=== PATIENT | female | born 2000 | race African-American/Black ===

== ENCOUNTER 2021-04-21 09:34 | Emergency (ER) | payer MEDICAID, OTHER ==
[~2021-04-21] VITALS: Ht 167.6 cm; Wt 105.0 kg
[2021-04-21 10:35] LABS: CLARITY URINE CLOUDY (CLEAR); COLOR URINE YELLOW (YELLOW); KETONES URINE NEGATIVE (NEGATIVE); LEUKOCYTE ESTERASE URINE 2+ (NEGATIVE); NITRITE URINE NEGATIVE (NEGATIVE); OCCULT BLOOD URINE 3+ (NEGATIVE); PH URINE 6.5 (4.5-8.0); PROTEIN URINE TRACE (NEGATIVE); UROBILINOGEN URINE 0.2 E.U./dL (0.2-1.0)
[2021-04-21] MEDS ORDERED: ONDANSETRON HCL 4MG/2ML INJ IV STA (10:42)
[2021-04-21] MEDS ORDERED: MORPHINE SULFATE 4 MG/ML CPJ (NOT FOR IM USE) IV STA (10:42)
[2021-04-21] MEDS ORDERED: SODIUM CHLORIDE 0.9% 1,000 ML IV ONE (10:45)
[2021-04-21 11:24] LABS: BASOPHILS % 0.5 % (0.0-2.0); EOSINOPHILS % 1.2 % (0.0-5.0); HEMATOCRIT. 42.3 % (36.0-48.0); HEMOGLOBIN. 13.7 g/dL (12.0-16.0); LYMPHOCYTES % 11.5 % (20.0-50.0); MEAN CORPUSCULAR HEMOGLOBIN 23.7 pg (28.0-32.0); MEAN CORPUSCULAR VOLUME 73.2 fL (81.0-99.0); MONOCYTES % 6.6 % (2.0-8.0); NEUTROPHILS % 80.2 % (40.0-76.0); PLATELET 258 x1000/uL (130-400); RED BLOOD CELL COUNT 5.77 mill/uL (4.2-5.4); RED CELL DISTRIBUTION WIDTH 18.6 % (11.6-14.6)
[2021-04-21 11:27] LABS: HCG SCREEN NEGATIVE
[2021-04-21 11:29] LABS: CHLORIDE 110 mEq/L (98-107)
[2021-04-21] MEDS ORDERED: MAGNESIUM/ALUMINUM HYDROXIDE/SIMETHICONE 30ML UDC PO ONE (11:30)
[2021-04-21] MEDS ORDERED: NITR-87 MT (11:56)
[2021-04-21] MEDS ORDERED: ACETAMINOPHEN 325MG TABLET PO ONE (12:45)
[2021-04-21 12:55] VITALS: BP 132/70
== END 2021-04-21 12:57 | disposition home or self-care (01) ==
LOC: ER 09:34
DX: K29.70 Gastritis, unspecified, without bleeding (principal)
CPT/HCPCS: 36415; 76705; 80053; 81003; 83690; 84703; 85025; 87086; 93005; 96361; 96374; 96375; 99285; J2270; J2405; J7030

== ENCOUNTER 2021-05-02 06:43 | Emergency (ER) | payer MEDICAID, OTHER ==
[~2021-05-02] VITALS: Ht 170.2 cm; Wt 91.0 kg
[~2021-05-02 06:43] MED LIST: NITR-87 MT
[2021-05-02] MEDS ORDERED: ONDANSETRON HCL 4MG/2ML INJ IV STA (07:13)
[2021-05-02] MEDS ORDERED: KETOROLAC 30MG/ML VIAL IV STA (07:13)
[2021-05-02] MEDS ORDERED: SODIUM CHLORIDE 0.9% 1,000 ML IV ONE (07:15)
[2021-05-02 08:12] LABS: CHLORIDE 108 mEq/L (98-107)
[2021-05-02 08:14] LABS: HCG SCREEN NEGATIVE
[2021-05-02 08:17] LABS: HEMATOCRIT. 43.4 % (36.0-48.0); HEMOGLOBIN. 14.3 g/dL (12.0-16.0); MEAN CORPUSCULAR HEMOGLOBIN 23.9 pg (28.0-32.0); MEAN CORPUSCULAR VOLUME 72.9 fL (81.0-99.0); MEAN PLATELET VOLUME 10.4 fl (7.4-10.4); PLATELET 303 x1000/uL (130-400); RED BLOOD CELL COUNT 5.96 mill/uL (4.2-5.4); RED CELL DISTRIBUTION WIDTH 18.2 % (11.6-14.6)
[2021-05-02 09:27] LABS: CLARITY URINE CLEAR (CLEAR); COLOR URINE YELLOW (YELLOW); KETONES URINE TRACE (NEGATIVE); LEUKOCYTE ESTERASE URINE NEGATIVE (NEGATIVE); NITRITE URINE NEGATIVE (NEGATIVE); OCCULT BLOOD URINE NEGATIVE (NEGATIVE); PH URINE >=9.0 (4.5-8.0); PROTEIN URINE NEGATIVE (NEGATIVE); SPECIFIC GRAVITY URINE 1.014 (1.005-1.030); UROBILINOGEN URINE 0.2 E.U./dL (0.2-1.0)
[2021-05-02 09:51] LABS: PLATELET ESTIMATE NORMAL
[2021-05-02] MEDS ORDERED: FAMO-135 MT (09:58)
[2021-05-02] MEDS ORDERED: ONDA4TAB5 MT (09:58)
[2021-05-02] MEDS ORDERED: TRAM50TA3 MT (09:58)
[2021-05-02 10:48] VITALS: BP 146/83
== END 2021-05-02 10:56 | disposition home or self-care (01) ==
LOC: ER 06:51
DX: K29.70 Gastritis, unspecified, without bleeding (principal); R16.0 Hepatomegaly, not elsewhere classified; E87.2 Acidosis; R03.0 Elevated blood-pressure reading, without diagnosis of hypertension
CPT/HCPCS: 36415; 74176; 80053; 81003; 81025; 83690; 84703; 85025; 93005; 96361; 96374; 96375; 99285; J1885; J2405; J7030

== ENCOUNTER 2022-12-26 07:55 | Emergency (ER) | payer MEDICAID, OTHER ==
[~2022-12-26] VITALS: Ht 170.2 cm; Wt 114.0 kg
[~2022-12-26 07:55] MED LIST changes: +FAMO-135 MT; +ONDA4TAB5 MT; +TRAM50TA3 MT
[2022-12-26] MEDS ORDERED: ONDANSETRON 4MG ODT PO STA (09:16)
[2022-12-26] MEDS ORDERED: KETOROLAC 60MG/2ML VIAL IM STA (09:16)
[2022-12-26] MEDS ORDERED: DEXT 5%/LACTATED RINGERS 1,000 ML IV ONE (10:15)
[2022-12-26] MEDS ORDERED: METOCLOPRAMIDE HCL 10MG/2ML VIAL IV ONE (11:45)
[2022-12-26 11:49] LABS: CLARITY URINE CLEAR (CLEAR); COLOR URINE YELLOW (YELLOW); KETONES URINE 3+ (NEGATIVE); LEUKOCYTE ESTERASE URINE 2+ (NEGATIVE); NITRITE URINE NEGATIVE (NEGATIVE); OCCULT BLOOD URINE TRACE (NEGATIVE); PH URINE 7.5 (4.5-8.0); PROTEIN URINE NEGATIVE (NEGATIVE); SPECIFIC GRAVITY URINE 1.016 (1.005-1.030)
[2022-12-26 12:23] LABS: CHLORIDE 105 mEq/L (98-107)
[2022-12-26 12:24] LABS: BASOPHILS % 0.4 % (0.0-2.0); EOSINOPHILS % 0.5 % (0.0-5.0); HEMATOCRIT. 41.7 % (36.0-48.0); HEMOGLOBIN. 14.2 g/dL (12.0-16.0); MEAN CORPUSCULAR HEMOGLOBIN 24.8 pg (28.0-32.0); MEAN CORPUSCULAR VOLUME 72.8 fL (81.0-99.0); MEAN PLATELET VOLUME 9.1 fl (7.4-10.4); MONOCYTES % 7.5 % (2.0-8.0); NEUTROPHILS % 73.6 % (40.0-76.0); PLATELET 270 x1000/uL (130-400); RED BLOOD CELL COUNT 5.73 mill/uL (4.2-5.4); RED CELL DISTRIBUTION WIDTH 17.9 % (11.6-14.6)
[2022-12-26] MEDS ORDERED: METO5TAB86 MT (14:28)
[2022-12-26 15:02] VITALS: BP 145/64
[2022-12-26] MEDS ORDERED: DOXY100C5 MT (15:12)
== END 2022-12-26 15:16 | disposition home or self-care (01) ==
LOC: ER 07:55
DX: O21.0 Mild hyperemesis gravidarum (principal); Z3A.09 9 weeks gestation of pregnancy
CPT/HCPCS: 36415; 80053; 81003; 81025; 85025; 86850; 86900; 86901; 96374; 99283; J1885; J2765; Q0162

== ENCOUNTER 2023-07-09 10:54 | Emergency (ER) | payer MEDICAID, OTHER ==
[~2023-07-09] VITALS: Ht 170.2 cm; Wt 117.9 kg
[~2023-07-09 10:54] MED LIST changes: +DOXY100C5 MT; +METO5TAB86 MT
[2023-07-09 10:59] VITALS: BP 134/72; PULSE 98; RESP 16; TEMP 98.5; O2SAT 98
[2023-07-09] MEDS ORDERED: CLIN-116 MT (13:12)
[2023-07-09] MEDS ORDERED: TETANUS, DIPHTHERIA, PERTUSSIS VAC/PF 0.5ML (>10YR OLD) IM ONE (13:15)
[2023-07-09] MEDS ORDERED: CEFTRIAXONE SODIUM 1 G/VIAL IM ONE (13:15)
[2023-07-09] MEDS ORDERED: LIDOCAINE HCL/PF 1% 10 MG/ML 5ML VIAL INFIL ONE (14:00)
== END 2023-07-09 14:28 | disposition home or self-care (01) ==
LOC: ER 10:54
DX: S01.419A Laceration without foreign body of unspecified cheek and temporomandibular area, initial encounter (principal); Y04.0XXA Assault by unarmed brawl or fight, initial encounter; Y92.89 Other specified places as the place of occurrence of the external cause; Y99.8 Other external cause status
CPT/HCPCS: 90715; 90471; 96372; 99284; J0696; J3490; Z7610